=== PATIENT | male | born 2000 | race Caucasian/White ===

== ENCOUNTER 2022-06-24 15:12 | Emergency (ER) | payer OTHER ==
[~2022-06-24] VITALS: Ht 165.1 cm; Wt 64.5 kg
[2022-06-24] MEDS ORDERED: AMOX875T2 PO (18:07)
[2022-06-24] MEDS ORDERED: IBUP80TA PO (18:07)
[2022-06-24 18:19] VITALS: BP 145/82
== END 2022-06-24 18:21 | disposition home or self-care (01) ==
LOC: M ED 15:12
DX: H66.92 Otitis media, unspecified, left ear (principal); Z86.69 Personal history of other diseases of the nervous system and sense organs